=== PATIENT | male | born 1945 | race Caucasian/White ===

== ENCOUNTER 2017-01-12 11:49 | Observation (INO) ==
--- NOTE | 2017-01-12 12:05 | Emergency Department Note ---
Disposition Clinical Impression: Hypertension, Frail elderly, History of colon cancer, History of coronary artery disease, Abnormal liver function tests, Elevated lipase, Renal artery stenosis, Degenerative joint disease (DJD) of lumbar spine, DJD (degenerative joint disease) of thoracic spine, Diverticulosis, Cholelithiasis, Pulmonary nodule, Ventral hernia Disposition: Admitted As Inpatient Referrals: NO,PCP [Non-Partnered Physician] - Forms: ED Satisfaction Letter General Adult HPI - General Chief complaint: ED Back Pain/Injury Stated complaint: back pain Time Seen by Provider: 01/12/17 12:05 Source: patient, family Limitations: no limitations - History of Present Illness HPI Narrative: 71-year-old male reports to the emergency Department complaining of progressive right-sided back pain for the last 5 days. The patient has no history of back problems, he has never had back surgery. He has a history of coronary disease, he is not currently anticoagulated. The patient denies any chest pain or abdominal pain no bloody urine. No history of kidney stones. There has been no fall or injury. Patient is hypertensive but has not been taking his medications. There is no history of fever or rash. No bowel or bladder problems. No weakness or numbness in the legs. The pain does not necessarily radiate down the posterior thighs. There is no history of hip pain particularly. No coldness blueness numbness or weakness of the arms or legs. The patient states it hurts when he moves sometimes but not all the time. The patient has no personal history of aneurysm. There is no history of syncope or leg swelling. No confusion or fever. No cough or runny nose ear pain or sore throat. The patient has had no difficulty walking talking hearing seeing or speaking. No confusion or headache or neck stiffness. Patient has never had an MRI of his spine, he denies spinal problems in the past but he does have a history of colon cancer. Pain Scale: 0 - Related Data Allergies Allergy/AdvReac Type Severity Reaction Status Date / Time No Known Allergies Allergy Verified 01/12/17 13:21 All systems ED: reviewed and negative except as stated. Past Medical History - Past Medical History Medical history: Reports: hypertension - Social History Smoking Status: Never smoker Alcohol use: Reports: none Drug use: Reports: none Physical Exam - General Limitations: no limitations General appearance: alert, in no apparent distress - Head Head exam: atraumatic, normocephalic, normal inspection - Eye Eye exam: Present: normal appearance, PERRL, EOMI - ENT ENT exam: normal exam, normal oropharynx, mucous membranes moist, TM's normal bilaterally, normal external ear exam - Neck Neck exam: Present: normal inspection, full ROM, trachea midline. Absent: tenderness - Chest Chest inspection: Present: symmetric chest wall rise. Absent: tenderness - Respiratory Respiratory exam: Present: normal lung sounds bilaterally. Absent: respiratory distress - Cardiovascular Cardiovascular exam: Present: regular rate, normal rhythm, normal heart sounds - Abdominal Exam Abdominal exam: Present: soft, Non-Tender, normal bowel sounds. Absent: tenderness, distention, guarding, rebound, rigidity, Sims's sign, Rovsing's sign, tenderness at McBurney's Point, ascites, pulsatile mass - Rectal Exam Rectal exam: Present: deferred (Patient declines.) - Extremities Exam Extremities exam: Present: normal inspection, full ROM, normal capillary refill. Absent: tenderness, pedal edema, joint swelling, calf tenderness - Expanded Lower Extremity Exam Hip/Pelvis exam: Present: full ROM. Absent: tenderness Upper leg exam: Present: full ROM. Absent: tenderness Knee exam: Present: full ROM. Absent: tenderness Lower leg exam: Present: full ROM. Absent: tenderness, Homans' sign Ankle exam: Present: full ROM. Absent: tenderness Neurovascular/Tendon exam: Present: normal capillary refill. Absent: pulse deficit, motor deficit, sensory deficit, tendon deficit, extremity cold to touch , pallor - Back Exam Back exam: Present: normal inspection, full ROM. Absent: tenderness, CVA tenderness (R), CVA tenderness (L), muscle spasm, paraspinal tenderness, vertebral tenderness, straight leg raise (R), straight leg raise (L) - Neurological Exam Neurological exam: Present: alert, oriented X3, CN II-XII intact. Absent: motor sensory deficit - Psychiatric Psychiatric exam: Present: normal affect, normal mood - Skin Skin exam: Present: warm, dry, intact, normal color. Absent: rash, cyanosis, diaphoresis, erythema, pallor, mottled Course Vital Signs Temperature 97.4 F L 01/12/17 11:50 Pulse Rate 74 01/12/17 11:50 Respiratory Rate 16 01/12/17 11:50 Blood Pressure 217/125 01/12/17 11:50 O2 Sat by Pulse Oximetry 97 01/12/17 11:50 Temperature 97.4 F L 01/12/17 11:50 Pulse Rate 86 01/12/17 14:13 Respiratory Rate 18 01/12/17 14:13 Blood Pressure 177/79 01/12/17 14:13 O2 Sat by Pulse Oximetry 97 01/12/17 14:13 Oxygen Delivery Oxygen Delivery Room Air Medical Decision Making - MDM Narrative Medical decision making narrative: The patient's CTs do not reveal aortic dissection, thoracic or lumbar disease as noted and post of other findings including cholelithiasis. The patient does have a slightly elevated lipase and liver function test. He does not seem to have right upper abdominal pain and is not jaundiced. I am concerned because the CT does reveal renal artery stenosis, the patient's blood pressure is markedly elevated, he is elderly, we did give him hydralazine which did bring his blood pressure down. Based on the patient's age, uncontrolled blood pressure, apparent new diagnosis of renal artery stenosis, gallbladder radiographic disease and associated liver function abnormalities and elevation lipase, I thought it be appropriate to admit the patient the hospital for further evaluation with particular attention to the patient's blood pressure. Perhaps a nephrology consult and/or surgical consult would be helpful. I discussed the case with the hospitalist on-call who has accepted the patient to their care. - Lab Data Lab results reviewed: Yes I reviewed the patient's lab results. Result diagrams: 01/12/17 12:25 01/12/17 12:25 Lab Results 01/12/17 01/12/17 01/12/17 Range/Units 12:25 12:25 12:25 WBC 7.3 (4.3-11.1) K/mcL RBC 5.03 (4.19-5.50) M/mcL Hgb 16.0 (12.9-16.9) g/dL Hct 45.0 (37.5-50.1) % MCV 89.5 (83.0-100.0) fL MCH 31.8 (28.0-33.3) pg MCHC 35.6 H (31.6-35.5) g/dL RDW 13.3 (11.5-14.5) % Plt Count 273 (140-400) K/mcL MPV 10.2 (9.4-12.4) fL Immature Gran % 0.4 (0-4) % Seg Neutrophils % 56.2 % Lymphocytes % 29.1 % Monocytes % 9.3 % Eosinophils % 3.6 % Basophils % 1.4 % Neutrophils # 4.1 (1.6-8.9) K/mcL Lymphocytes # 2.1 (0.6-4.6) K/mcL Monocytes # 0.7 (0.0-1.3) K/mcL Eosinophils # 0.3 (0.0-0.6) K/mcL Basophils # 0.1 (0.0-0.2) K/mcL PT (9.4-12.1) Seconds INR APTT (26.0-36.0) Seconds Sodium 139 (136-145) mEq/L Potassium 4.0 (3.5-4.5) mEq/L Chloride 109 (98-109) mEq/L Carbon Dioxide 22 (19-29) mEq/L BUN 23 (8-26) mg/dL Creatinine 0.89 (0.72-1.25) mg/dL Est GFR ( Amer) > 60 (> 60) Est GFR (Non-Af Amer) > 60 (> 60) BUN/Creatinine Ratio 26 (6-26) Glucose 90 (70-99) mg/dL Calculated Osmolality 291 (280-300) Lactic Acid (0.5-2.2) mmol/L Calcium 9.7 (8.6-10.8) mg/dL Total Bilirubin 0.9 (0.2-1.2) mg/dL Direct Bilirubin 0.3 (0.0-0.5) mg/dL Indirect Bilirubin 0.6 (0.0-1.2) mg/dL AST 39 H (5-34) Units/L ALT 58 H (0-55) Units/L Alkaline Phosphatase 98 (38-126) Units/L Troponin I 0.01 (0-0.03) ng/mL C-Reactive Protein (Less than 5) mg/L Serum Total Protein 7.4 (6.0-8.3) g/dL Albumin 3.9 (3.5-5.0) g/dL Globulin 3.5 (2.4-3.5) g/dL Albumin/Globulin Ratio 1.1 (1.1-2.2) Lipase 113 H (8-78) Units/L 01/12/17 01/12/17 01/12/17 Range/Units 12:25 12:25 12:28 WBC (4.3-11.1) K/mcL RBC (4.19-5.50) M/mcL Hgb (12.9-16.9) g/dL Hct (37.5-50.1) % MCV (83.0-100.0) fL MCH (28.0-33.3) pg MCHC (31.6-35.5) g/dL RDW (11.5-14.5) % Plt Count (140-400) K/mcL MPV (9.4-12.4) fL Immature Gran % (0-4) % Seg Neutrophils % % Lymphocytes % % Monocytes % % Eosinophils % % Basophils % % Neutrophils # (1.6-8.9) K/mcL Lymphocytes # (0.6-4.6) K/mcL Monocytes # (0.0-1.3) K/mcL Eosinophils # (0.0-0.6) K/mcL Basophils # (0.0-0.2) K/mcL PT 10.5 (9.4-12.1) Seconds INR 1.0 APTT 39.4 H (26.0-36.0) Seconds Sodium (136-145) mEq/L Potassium (3.5-4.5) mEq/L Chloride (98-109) mEq/L Carbon Dioxide (19-29) mEq/L BUN (8-26) mg/dL Creatinine (0.72-1.25) mg/dL Est GFR ( Amer) (> 60) Est GFR (Non-Af Amer) (> 60) BUN/Creatinine Ratio (6-26) Glucose (70-99) mg/dL Calculated Osmolality (280-300) Lactic Acid 0.8 (0.5-2.2) mmol/L Calcium (8.6-10.8) mg/dL Total Bilirubin (0.2-1.2) mg/dL Direct Bilirubin (0.0-0.5) mg/dL Indirect Bilirubin (0.0-1.2) mg/dL AST (5-34) Units/L ALT (0-55) Units/L Alkaline Phosphatase (38-126) Units/L Troponin I (0-0.03) ng/mL C-Reactive Protein 6 H (Less than 5) mg/L Serum Total Protein (6.0-8.3) g/dL Albumin (3.5-5.0) g/dL Globulin (2.4-3.5) g/dL Albumin/Globulin Ratio (1.1-2.2) Lipase (8-78) Units/L - Radiology Data Radiology results reviewed: Yes I reviewed the patient's radiology results.
[2017-01-12] MEDS ORDERED: *HR* Labetalol 20 MG/4 ML SYRINGE IVP ONE (12:18)
[2017-01-12] MEDS ORDERED: *HR* Morphine 2 MG/ML SYRINGE IVP ONE ×2 (12:19→20:01)
[2017-01-12] MEDS ORDERED: Ondansetron 4 MG/2 ML VIAL IVP ONE (12:19)
[2017-01-12] MEDS ORDERED: 0.9 % Sodium Chloride 1,000 ML IVC SCH ×2 (12:30→21:30)
[2017-01-12 12:36] LABS: Basophils # 0.1 K/mcL (0.0-0.2); Basophils % 1.4 %; Eosinophils # 0.3 K/mcL (0.0-0.6); Eosinophils % 3.6 %; Immature Granulocytes % 0.4 % (0-4); Lymphocytes # 2.1 K/mcL (0.6-4.6); Lymphocytes % 29.1 %; Mean Corpuscular HGB Conc 35.6 g/dL (31.6-35.5); Mean Corpuscular Hemoglobin 31.8 pg (28.0-33.3); Mean Corpuscular Volume 89.5 fL (83.0-100.0); Mean Platelet Volume 10.2 fL (9.4-12.4); Monocytes # 0.7 K/mcL (0.0-1.3); Monocytes % 9.3 %; Neutrophils # 4.1 K/mcL (1.6-8.9); Platelet Count 273 K/mcL (140-400); Red Blood Count 5.03 M/mcL (4.19-5.50); Red Cell Distribution Width 13.3 % (11.5-14.5); Segmented Neutrophils % 56.2 %
[2017-01-12 12:46] LABS: Alanine Aminotransferase 58 Units/L (0-55); Albumin 3.9 g/dL (3.5-5.0); Albumin/Globulin Ratio 1.1 (1.1-2.2); Alkaline Phosphatase 98 Units/L (38-126); Aspartate Amino Transferase 39 Units/L (5-34); BUN/Creatinine Ratio 26 (6-26); Bilirubin,Direct 0.3 mg/dL (0.0-0.5); Bilirubin,Indirect 0.6 mg/dL (0.0-1.2); Bilirubin,Total 0.9 mg/dL (0.2-1.2); Blood Urea Nitrogen 23 mg/dL (8-26); Calcium 9.7 mg/dL (8.6-10.8); Carbon Dioxide 22 mEq/L (19-29); Chloride 109 mEq/L (98-109); Globulin 3.5 g/dL (2.4-3.5); Glucose 90 mg/dL (70-99); Lipase 113 Units/L (8-78); Osmolality,Calculated 291 (280-300); Sodium 139 mEq/L (136-145); Total Protein 7.4 g/dL (6.0-8.3); eGFR For African Americans > 60 (> 60); eGFR For Non-African Americans > 60 (> 60)
[2017-01-12 12:56] LABS: Prothrombin Time 10.5 Seconds (9.4-12.1)
[2017-01-12 12:59] LABS: Activated Partial Thrombo Time 39.4 Seconds (26.0-36.0)
[2017-01-12] MEDS ORDERED: *HR* OxyCODONE/APAP 5/325 TABLET PO ONE (17:31)
[2017-01-12] MEDS ORDERED: Ondansetron 4 MG/2 ML VIAL IVP PRN (21:21)
[2017-01-12] MEDS ORDERED: Naloxone 0.4 MG/ML INJ IVP PRN (21:21)
[2017-01-12] MEDS ORDERED: *HR* Morphine 2 MG/ML SYRINGE IVP PRN (21:21)
--- NOTE | 2017-01-12 22:13 | Internal Med History&Physical ---
Date of Encounter: 01/12/17 Time of Encounter: 20:15 Assessment and Plan (1) Hypertensive urgency Current visit: Yes Status: Acute 1. Will use Hydralazine PRN and monitor closely. 2. Patient will likely need chronic daily anti-hypertensives. 3. BP will likely improve as pain is treated. 4. I asked patient's to obtain his old medication list to review. 5. No BB as he is bradycardic. (2) Intractable low back pain Current visit: Yes Status: Acute 1. I suspect he has musculoskeletal etiology, likely disc disease. 2. Will treat with IV Morphine and muscle relaxers as needed. 3. MRI thoracolumbar spine. 4. May need spine surgery consult. (3) Pancreatitis Current visit: Yes Status: Acute 1. Patient asymptomatic. 2. Will keep on clear liquid diet and follow labs. 3. Check lipid profile. 4. Patient does not drink alcohol. 5. Follow LFTS. 6. May need further GB work-up once acute problems resolve. Qualifiers: Chronicity: acute Pancreatitis type: unspecified pancreatitis type Acute pancreatitis complication: no infection or necrosis Qualified Code(s): K85.90 - Acute pancreatitis without necrosis or infection, unspecified (4) Renal artery stenosis Current visit: Yes Status: Acute 1. Consult Dr. Funez for further work-up, intervention if advised, and for chronic BP control. (5) CAD (coronary artery disease) Current visit: Yes Status: Chronic 1. Will trend troponins, EKG's, and obtain ECHO. 2. Will check baseline labs and recommend appropriate medications upon discharge. 3. Patient advised on the importance of compliance with medical care. Qualifiers: Coronary Disease-Associated Artery/Lesion type: [place] artery [place] vs. transplanted heart: [place] heart Associated angina: without angina Qualified Code(s): I25.10 - Atherosclerotic heart disease of [place] coronary artery without angina pectoris (6) DVT prophylaxis Current visit: Yes Status: Acute 1. Heparin SQ. Internal Medicine - H&P: HPI Chief complaint: intractable low back pain; uncontrolled hypertension Admitted From: Emergency Dept Plans for Post Hospital Care: Home History of present illness: Mr. Leal is a 71 year old male who presents with several day history of severe , intractable right lower back pain. He has dealt with this for several years off and on and was able to treat himself with [id number] NSAIDs and heating pad. However, over the last few days, this flareup was severe and resulted in intractable back pain. As such, he came to the ER where he was noted to have hypertensive urgency. He therefore underwent scans looking for aortic dissection which were negative. He was found to have incidental finding of renal artery stenosis and gallstones. His blood pressure was treated, and he was admitted to the hospitalist service for further workup and care. He was also found to have some evidence of pancreatitis as well. Upon my assessment of the patient, he feels a little better but still complains of significant pain in his right lower back with some weakness and radiating pain to his right foot. He denies any trauma or injury. He does have evidence of severe disc disease in his thoracolumbar spine. He denies any chest pain, shortness of breath, nausea, vomiting, or diarrhea. He does have coronary artery disease and underwent bypass surgery several years ago. He also has a history of hypertension and hyperlipidemia. He has been noncompliant with his medications and has not taken any medication lately other than [id number] NSAIDs for his back pain. He denies any renal problems in the past. The renal artery stenosis finding today was incidental and a new finding for him. Past Med Surg Social Fam HX - Past Medical History Attestation: Yes The following information was validated with the patient. Source: patient, old records reviewed, obtained from family Medical history: cancer (colon -- partial resection), coronary artery disease, hypertension Psychiatric history: no psych history - Past Surgical History Surgical History: colectomy (partial), coronary bypass (CABG) - Social History Smoking Status: Never smoker Smokeless Tobacco Status: No Alcohol use: none Drug use: none Current living situation: Home, With Family Activity Level: Independent ambulation Recent Out of Country Travel Within the Last 8 Weeks: No - Family History Mother Age: 100 Living Status: Hx Family Neurologic Disorders: Yes Father Living Status: Cause of : gun shot wound Internal Medicine - H&P: Meds Naproxen Sodium [Aleve] 220 mg PO Q12H PRN 01/12/17 [History] Allergies No Known Allergies Allergy (Verified 01/12/17 13:21) - Constitutional Constitutional: no chills, no fever(s), no night sweats - EENT Eyes: no blurry vision, no change in vision Ears: no ear pain, no tinnitus Nose, mouth and throat: no nasal congestion, no sinus pressure, no sore throat - Cardiovascular Cardiovascular ROS IM: no chest pain, no diaphoresis, no dyspnea, no dyspnea on exertion, no irregular heart rhythm, no syncope - Respiratory Respiratory: no cough, no dyspnea, no hemoptysis, no wheezing, no chest congestion - Gastrointestinal Gastrointestinal: no abdominal pain, no diarrhea, no hematemesis, no hematochezia, no melena, no nausea, no vomiting - Genitourinary Genitourinary ROS male: no dysuria, no flank pain, no hematuria - Musculoskeletal Musculoskeletal ROS IM: arthralgias, back pain (severe and intractable right side lumbar area), tingling (right foot) - Integumentary Integumentary IM: no rash, no jaundice - Neurological Neurological ROS: no focal weakness, no frequent falls, no headache(s) - Psychiatric Psychiatric: no anxiety, no depression - Endocrine Endocrine IM: no polydipsia, no polyphagia, no polyuria - Hematologic/Lymphatic Hematologic/Lymphatic: no easy bruising, no lymphadenopathy - Allergic/Immunologic Allergic/Immunologic: no wheezing, no GI upset with certain foods - Constitutional Vitals: Temp Pulse Resp BP Pulse Ox 97.5 F L 57 18 153/64 96 01/12/17 18:40 01/12/17 18:40 01/12/17 18:40 01/12/17 18:40 01/12/17 18:40 General appearance: Present: cooperative, mild distress, A&O X 3, pleasant, answers questions appropriately - Head Head exam: Present: atraumatic, normal inspection - Expanded Head Exam Head exam expanded: Absent: abrasion, contusion, general tenderness - Eye Eye exam: Present: EOMI, normal appearance, PERRL. Absent: scleral icterus Pupils: Present: normal accommodation - ENT ENT exam: Present: mucous membranes moist, normal exam, normal oropharynx - Neck Neck exam general surgery: Present: full ROM, normal inspection, supple. Absent : lymphadenopathy, tenderness - Expanded Neck Exam Neck exam: Absent: carotid bruit - Respiratory Respiratory exam: Present: CTAB. Absent: chest wall tenderness, rales, rhonchi , wheezes - Cardiovascular Cardiovascular exam: Present: RRR, +S1, +S2. Absent: diastolic murmur, JVD, systolic murmur - GI/Abdominal GI/Abdominal exam: Present: normal bowel sounds, soft, no peritoneal signs. Absent: guarding, hepatomegaly, rebound, splenomegaly, tenderness - Extremities Exam Extremities exam: Present: full ROM, warm. Absent: calf tenderness, joint swelling, pedal edema, tenderness - Back Exam Back exam: Present: paraspinal tenderness (right lower lumbar area). Absent: CVA tenderness (L), CVA tenderness (R) - Neurological Exam Neurological exam: Present: alert, CN II-XII intact, oriented X3, no focal deficits. Absent: motor sensory deficit Additional comments: radiating pain but no weakness to RLE - Psychiatric Psychiatric exam: Present: normal affect, normal mood - Skin Skin exam: Present: dry, warm. Absent: rash Internal Med - H&P Results - Labs CBC & Chem 7: 01/12/17 12:25 01/12/17 12:25 - EKG Data EKG comments: 01/12/17 22:19 EKG unavailable for review; will order one to review - Diagnostic Studies CT scan - chest Status: image reviewed by me (negative for dissection/aneurysm/PE; gallstones noted)
[2017-01-12] MEDS: Pantoprazole 40 MG VIAL IVP SCH (22:15)
[2017-01-12] MEDS: *HR* Heparin 5,000 UNIT/ML VIAL SQ SCH (22:16)
[2017-01-13 04:08] LABS: Basophils # 0.1 K/mcL (0.0-0.2); Basophils % 0.9 %; Eosinophils # 0.2 K/mcL (0.0-0.6); Eosinophils % 3.4 %; Hematocrit 45.5 % (37.5-50.1); Hemoglobin 15.5 g/dL (12.9-16.9); Immature Granulocytes % 0.1 % (0-4); Lymphocytes # 1.7 K/mcL (0.6-4.6); Lymphocytes % 25.6 %; Mean Corpuscular HGB Conc 34.1 g/dL (31.6-35.5); Mean Corpuscular Hemoglobin 31.6 pg (28.0-33.3); Mean Corpuscular Volume 92.9 fL (83.0-100.0); Mean Platelet Volume 10.3 fL (9.4-12.4); Monocytes # 0.8 K/mcL (0.0-1.3); Monocytes % 12.3 %; Neutrophils # 3.9 K/mcL (1.6-8.9); Platelet Count 266 K/mcL (140-400); Red Cell Distribution Width 13.6 % (11.5-14.5); Segmented Neutrophils % 57.7 %
[2017-01-13 04:18] LABS: Alanine Aminotransferase 54 Units/L (0-55); Albumin 3.4 g/dL (3.5-5.0); Alkaline Phosphatase 92 Units/L (38-126); Amylase 49 Units/L (25-125); Aspartate Amino Transferase 36 Units/L (5-34); BUN/Creatinine Ratio 25 (6-26); Bilirubin,Total 0.7 mg/dL (0.2-1.2); Blood Urea Nitrogen 27 mg/dL (8-26); Calcium 9.8 mg/dL (8.6-10.8); Carbon Dioxide 24 mEq/L (19-29); Chloride 107 mEq/L (98-109); Chol/HDL Ratio 6.2 (0-4.9); Cholesterol 230 mg/dL (< 200); Globulin 3.4 g/dL (2.4-3.5); Glucose 111 mg/dL (70-99); HDL Cholesterol 37 mg/dL (40-59); LDL Cholesterol,Calculated 142 mg/dL (0-99); Lipase 35 Units/L (8-78); Magnesium 2.6 mg/dL (1.6-2.6); Osmolality,Calculated 296 (280-300); Sodium 140 mEq/L (136-145); Total Protein 6.8 g/dL (6.0-8.3); Triglycerides 254 mg/dL (< 150); eGFR For African Americans > 60 (> 60); eGFR For Non-African Americans > 60 (> 60)
[2017-01-13 05:35] LABS: Bilirubin,Urine Negative (Negative); Blood,Urine Negative (Negative); Clarity,Urine Clear (Clear); Color,Urine Yellow (Yellow); Glucose,Urine (UA) Normal (Normal); Ketones,Urine Negative (Negative); Leukocyte Esterase,Urine Negative (Negative); Nitrite,Urine Negative (Negative); PH,Urine 5.5 pH Units (5.0-8.0); Protein,Urine 30 mg/dL (Neg-Trace); Specific Gravity,Urine > 1.030 (1.010-1.025); Urobilinogen,Urine Normal (Normal)
[2017-01-13 05:38] LABS: Bacteria,Urine None Seen per hpf (None-Few); Hyaline Casts,Urine None Seen per lpf (None-Few); RBC,Urine 0-3 per hpf (0-3); Squamous Epithelial Cell,Urine Moderate per lpf (None-Few); WBC,Urine 0-3 per hpf (0-3)
[2017-01-13] MEDS: *HR* Heparin 5,000 UNIT/ML VIAL SQ SCH ×3 (05:39→21:33)
[2017-01-13] MEDS: Pantoprazole 40 MG VIAL IVP SCH (05:39)
[2017-01-13] MEDS ORDERED: Perflutren Lipid Microsphere 1.3 ML in 0.9 % Sodium Chloride 8.7 ML IVP ONE (08:02)
[2017-01-13] MEDS ORDERED: Perflutren Lipid Microsphere 2 ML VIAL ONE (08:18)
[2017-01-13] MEDS ORDERED: amLODIPine 5 MG TABLET PO SCH (09:30)
--- NOTE | 2017-01-13 09:43 | Internal Med Progress Note ---
Date of Encounter: 01/13/17 Time of Encounter: 09:41 - Assessment and plan (1) Elevated lipase Status: Resolved Assessment and plan: The patient was noted to have mildly elevated serum lipase at the time of admission, however had no clinical signs of pancreatitis. Serum lipase is now noted to be improving and patient is able to tolerate liquid diet. We will advance diet to solids. (2) Hypertensive urgency Status: Acute Assessment and plan: Patient is noted to have a history of medical noncompliance and has not followed up with his primary care provider or taken any of his medications for the last 6-7 months. Blood pressure is currently well controlled. Will start patient on oral hydralazine and Norvasc along with when necessary IV medications for appropriate blood pressure control. We will follow nephrology recommendations. (3) Intractable low back pain Status: Acute Assessment and plan: Likely related to spinal stenosis/radiculopathy. CT lumbar and thoracic spine showed no acute abnormality. Will follow up MRI lumbar and thoracic spine. Pain control with when necessary oral oxycodone. Supportive care. (4) Renal artery stenosis Status: Chronic Assessment and plan: Patient has an incidental finding of renal artery stenosis and nephrology has been consulted, will follow-up recommendations. (5) CAD (coronary artery disease) Status: Chronic Assessment and plan: The patient has been lost to follow-up for the last few months. We will restart on Lipitor given his history of coronary artery disease. Qualifiers: Coronary Disease-Associated Artery/Lesion type: bypass graft [place] vs. transplanted heart: [place] heart Associated angina: without angina Qualified Code(s): I25.810 - Atherosclerosis of coronary artery bypass graft(s) without angina pectoris - Subjective Interval history: Continues to have significant mid low back pain, aggravated on certain types of movement, relieved on sitting still. No nausea, vomiting, urinary or stool incontinence. No tingling or numbness or weakness in legs. - Constitutional Vitals: Temp Pulse Resp BP Pulse Ox 97.5 F L 59 14 189/64 93 01/13/17 05:04 01/13/17 05:04 01/13/17 05:04 01/13/17 05:04 01/13/17 05:04 General appearance: Present: A&O X 3, answers questions appropriately - Respiratory Respiratory exam: Present: CTAB. Absent: accessory muscle use, rales, rhonchi, wheezes - Cardiovascular Cardiovascular exam: Present: RRR, +S1, +S2. Absent: diastolic murmur, gallop, rubs, systolic murmur - GI/Abdominal GI/Abdominal exam: Present: normal bowel sounds, soft (obese), no peritoneal signs. Absent: distended, tenderness - Extremities Exam Extremities exam: Present: full ROM, warm, radial pulses palpable and symetrical. Absent: calf tenderness, cyanotic, pedal edema - Back Exam Additional comments: no midline spinal tenderness/swelling restricted ROM in lumbar spine Internal Medicine: Result - Labs CBC & Chem 7: 01/13/17 03:46 01/14/17 08:56 Labs: Short CBC 01/13/17 Range/Units 03:46 WBC 6.8 (4.3-11.1) K/mcL Hgb 15.5 (12.9-16.9) g/dL Hct 45.5 (37.5-50.1) % Plt Count 266 (140-400) K/mcL Neutrophils # 3.9 (1.6-8.9) K/mcL BMP 01/13/17 03:46 Sodium 140 Potassium 4.0 Chloride 107 Carbon Dioxide 24 BUN 27 H Creatinine 1.10 Glucose 111 H Calcium 9.8 Cardiac Enzymes 01/13/17 Range/Units 03:46 Troponin I 0.01 (0-0.03) ng/mL Liver Function 01/13/17 Range/Units 03:46 Total Bilirubin 0.7 (0.2-1.2) mg/dL AST 36 H (5-34) Units/L ALT 54 (0-55) Units/L Alkaline Phosphatase 92 (38-126) Units/L Albumin 3.4 L (3.5-5.0) g/dL Urine 01/13/17 Range/Units 05:20 Urine Color Yellow (Yellow) Urine Clarity Clear (Clear) Urine pH 5.5 (5.0-8.0) pH Units Ur Specific [place] > 1.030 H (1.010-1.025) Urine Protein 30 H (Neg-Trace) mg/dL Urine Glucose (UA) Normal (Normal) mg/dL - ABG Interpretation ABG results: PT/INR, D-dimer PT 10.5 Seconds (9.4-12.1) 01/12/17 12:28 Consult Discharge Plan - Plan Additional Instructions: F/up with at [facility] on 01/17/17 at 0900 Referrals: Yaw Kapoor, DO [Primary Care Provider] - (patient to call office once they are home to make a follow up appointment) Prescriptions: OxyCODONE Immed Rel [Roxicodone 5 MG] 5 mg PO Q4HR PRN #20 tablet PRN Reason: Severe Pain HydrALAZINE 25 mg PO Q8HR #90 tablet Amlodipine [Norvasc] 5 mg PO BID #60 tablet Atorvastatin [Lipitor] 40 mg PO HS #30 tablet Cyclobenzaprine [Flexeril] 10 mg PO TID PRN #30 tablet PRN Reason: Spasms Lidocaine Patch [Lidoderm 5% patch] 1 each TP DAILY PRN #10 adh..patch PRN Reason: Pain Lisinopril [Zestril] 10 mg PO BID #60 tablet Triamterene/HCTZ 75/50mg [Maxzide] 1 each PO DAILY #30 tablet
--- NOTE | 2017-01-13 10:32 | Nephrology Consult Note ---
Date of Encounter: 01/13/17 Time of Encounter: 09:55 Assessment and Plan (1) Hypertension Current Visit: Yes Status: Acute Hypertension urgency related to non compliance of not taking antihypertensive medication, uncontrolled pain issues, NSAID use, incidental finding of ISIAH contributing. Spoke with Dr. Funez. He does not feel ISIAH is a significant issue and will start on ACEI. BID dosing of Amlodipine. Will get TSH. Further ISIAH workup and JENNIFER can be done outpatient. Qualifiers: Hypertension type: renovascular hypertension Qualified Code(s): I15.0 - Renovascular hypertension History of Present Illness - Reason for Consult accelerated hypertension - History of Present Illness Mr. Leal is a 71 year old male who presented to ER with progressive right sided back pain for 5 days and incidental hypertensive urgency, BP 217/125. . Other PMH-CAD, CABG, HTN, HLD, colon cancer. Mr. Leal denies prior history of back pain. He was taking NSAID for back pain. He did receive Hydralazine in ER that did bring his BP down. CT did not reveal aortic dissection. Positive for thoracic and lumbar disease and cholelithiasis and incidental finding of moderate renal artery stenosis on right. Labs showed slightly elevated lipase and liver function test. His renal fct is normal. At todays consult, Mr. Leal is sitting on edge of bed, having just eaten breakfast. He states his back pain is somewhat lessened. He states hypertension for 5-6 years, under good control up until about 6 months ago when he did not go to F/U visit with PCP and never got his BP medication refilled. He does not know what BP medication he was taking. He admits past remote NSAID use with recent daily usage related to his current back pain over last 5 days. He denies headache or any unusual sweating. He denies history of sleep apnea or snoring. He denies proteinuria, hematuria, renal stones or UTI's. He denies LE swelling, shortness of breath or chest pain. He admits enlarged prostate with difficulty emptying bladder. He states he has followed with urology in past, was unable to afford prescribed medication and resorts to sitting when voiding that helps him in emptying bladder. Past Med Surg Social Fam HX - Past Medical History Medical history: cancer (colon -- partial resection), coronary artery disease, hypertension Psychiatric history: no psych history - Past Surgical History Surgical History: colectomy (partial), coronary bypass (CABG) - Social History Smoking Status: Never smoker Smokeless Tobacco Status: No Alcohol use: none Drug use: none - Family History Mother Age: 100 Living Status: Hx Family Neurologic Disorders: Yes Father Living Status: Cause of : gun shot wound Medications and Allergies Naproxen Sodium [Aleve] 220 mg PO Q12H PRN 01/12/17 [History] Allergies No Known Allergies Allergy (Verified 01/12/17 13:21) Review of Systems All Systems: reviewed and no additional remarkable complaints except as stated Exam - Vital Signs Vital signs: Initial Vital Signs Temp Pulse Resp BP Pulse Ox 97.4 F L 74 16 217/125 97 01/12/17 11:50 01/12/17 11:50 01/12/17 11:50 01/12/17 11:50 01/12/17 11:50 Vital Signs - Last 8 Hours Temp Pulse Resp BP Pulse Ox 01/13/17 05:04 97.5 F L 59 14 189/64 93 Intake and Output 01/12/17 01/13/17 01/13/17 23:59 07:59 15:59 Intake Total 0 / 0 Output Total 300 / 300 Balance -300 / -300 Intake: Oral 0 / 0 Output: Urine 300 / 300 - General Appearance General appearance: well-developed, well-nourished, appears started age, obese EENT: mucous membranes moist Neck: no JVD, no carotid bruit Respiratory: clear Cardiology: no edema, regular rate, regular rhythm Additional Comments: 2/6 systolic murmur Gastrointestinal: normoactive bowel sounds, no tenderness, no guarding, obese Integumentary: warm and dry Neurologic: alert and oriented x3 Psychiatric: mood/affect appropriate, cooperative Results - Lab Results 01/13/17 03:46 01/13/17 03:46 Most recent lab results Calcium 9.8 mg/dL (8.6-10.8) 01/13/17 03:46 Magnesium 2.6 mg/dL (1.6-2.6) 01/13/17 03:46 Consult Discharge Plan - Plan Referrals: Yaw Kapoor DO [Primary Care Provider] -
[2017-01-13 11:08] LABS: Creatinine,Urine 187 mg/dL; Microalbum/Creatinine Ratio,Ur 105 (0-30); Microalbumin,Urine 197 mg/L
[2017-01-13 11:21] LABS: Thyroid Stimulating Hormone 6.245 mcIU/mL (0.350-4.840)
[2017-01-13] MEDS: *HR* OxyCODONE Immed Rel 5 MG TABLET PO PRN ×2 (12:31→18:52)
--- NOTE | 2017-01-13 12:44 | ECHO - Doppler Report ---
Echo with Imaging Enhancement Agent Name: Andre Leal Date of Study: 01/13/2017 Date: 1945 Ht: 76.0 in Medical Record#: [id number] Age: 71 Wt: 300.0 lb Gender: Male BSA: 2.63 Order #: [id number] Location: [facility] Room #: 2A36 Reading Physician: Yajaira Rodriguez DO [facility]: Chloe Briseno RVT Ordering Physician: Narendra Johnson MD Primary Physician: Yaw Kapoor DO Indications: Coronary artery disease, Hypertension Impressions: LVEF 70%. Normal left ventricular size and systolic function. RV is not well evaluated on this study. Not all valves were well visualized. No Doppler evidence for dysfunction. Lack of TR gradient to estimate RVSP. Left Ventricular Wall Motion: Rest Echo Findings All wall segments showed normal motion. Findings: Study Quality * Technically sub-optimal with poor images. Definity was used. ECG Findings * Normal sinus rhythm. Left Atrium * Normal left atrial size. Mitral Valve * Normal mitral valve structure. * No mitral stenosis. * No mitral regurgitation. Aortic Valve * No aortic regurgitation. * Aortic valve not well visualized. * No aortic stenosis. Tricuspid Valve * Tricuspid valve not well visualized. * No tricuspid regurgitation. Pulmonic Valve * Pulmonic valve is not well visualized. * No pulmonic stenosis. * No pulmonic regurgitation. Pulmonary Artery * Pulmonary artery not well visualized. Left Ventricle * LVEF 70%. * Definity echo contrast was used. * Normal LV size and wall thickness. Right Ventricle * RV is not well visualized or evaluated. Right Atrium * Right atrium is not well visualized. Pericardium * There is no pericardial effusion present. IVC * The IVC is not well evaluated. Interatrial Septum * Interatrial septum not well evaluated. Aorta * Normally sized aortic root. History Hypertension History of CAD/PTCA Myocardial Infarction Coronary Artery Bypass Graft Contrast: Definity 1.3 ml in 8.7 ml of saline 3 ml. Measurements: BP: 189/ 64 2D Normal Values RVIDd: 3.00 cm <2.7 cm IVSd: 1.20 cm 0.6 - 1.0 cm LVIDd: 5.00 cm 3.7 - 5.6 cm LVPWd: 1.20 cm 0.6 - 1.1 cm LVIDs: 3.60 cm 1.5 - 3.6 cm AO: 2.80 cm < 4.0 cm LA: 3.70 cm 2.0 - 4.0cm %FS: 28.00 cm >25 % LA volume: Mitral Valve Peak E:.83 m/sec Peak A:.65 m/sec E/A Ratio:1.3 Updated by Yajaira Rodriguez on 01/13/2017 12:36:22 PM electronically signed on 01/13/2017 12:37:31 PM with status of Final Wall Motion Leary: 1=Normal, 2=Hypokinesis, 3=Akinesis, 4=Dyskinesis, 5=Aneurysmal, 6=Hyperkinetic, X=Not Visualized (Blank)=Missing
--- NOTE | 2017-01-13 13:24 | Electrocardiograph Report ---
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
[2017-01-13] MEDS: hydrALAZINE 25 MG TABLET PO SCH ×2 (14:31→23:55)
[2017-01-13] MEDS ORDERED: Naloxone 0.4 MG/ML INJ IVP PRN (18:04)
[2017-01-13] MEDS: *HR* OxyCODONE/APAP 10/325 TABLET PO PRN (20:56)
[2017-01-13] MEDS: amLODIPine 5 MG TABLET PO SCH (21:33)
[2017-01-14] MEDS: *HR* OxyCODONE/APAP 10/325 TABLET PO PRN ×2 (04:54→12:41)
[2017-01-14] MEDS: *HR* Heparin 5,000 UNIT/ML VIAL SQ SCH ×2 (05:42→14:14)
[2017-01-14] MEDS: amLODIPine 5 MG TABLET PO SCH (09:06)
[2017-01-14] MEDS: hydrALAZINE 25 MG TABLET PO SCH (09:06)
[2017-01-14 09:19] LABS: Alanine Aminotransferase 45 Units/L (0-55); Albumin 3.2 g/dL (3.5-5.0); Alkaline Phosphatase 90 Units/L (38-126); Aspartate Amino Transferase 26 Units/L (5-34); BUN/Creatinine Ratio 21 (6-26); Blood Urea Nitrogen 21 mg/dL (8-26); Calcium 9.3 mg/dL (8.6-10.8); Carbon Dioxide 22 mEq/L (19-29); Chloride 107 mEq/L (98-109); Globulin 3.3 g/dL (2.4-3.5); Glucose 195 mg/dL (70-99); Osmolality,Calculated 298 (280-300); Sodium 140 mEq/L (136-145); Total Protein 6.5 g/dL (6.0-8.3); eGFR For African Americans > 60 (> 60); eGFR For Non-African Americans > 60 (> 60)
--- NOTE | 2017-01-14 09:19 | Nephrology Progress Note ---
Date of Encounter: 01/14/17 Time of Encounter: 09:05 - Assessment and Plan (1) Hypertension Current Visit: Yes Status: Acute Hypertensive urgency n setting of non compliance of BP medication-non use, and back pain. Spoke with Dr. Funez. He does not feel ISIAH is a significant issue and did start on ACEI. BP improved since admission, though remains elevated. Will add Maxzide. TSH 6.24. Todays labs pending. If discharged, further ISIAH workup and JENNIFER can be done outpatient. Will follow in office in 3-4 weeks. Qualifiers: Hypertension type: essential hypertension Qualified Code(s): I10 - Essential (primary) hypertension Subjective Interval history: Sitting on edge of bed. States still has right posterior thoracic pain, though has increased mobility and ROM today. Objective - Vital Signs Vital signs: Vital Signs Temp Pulse Resp BP Pulse Ox 01/14/17 06:28 97.8 F 60 18 176/73 97 01/14/17 04:18 97.6 F 59 16 154/77 94 01/13/17 23:48 98.1 F 64 17 166/70 95 01/13/17 20:37 98.0 F 66 17 171/85 95 01/13/17 16:49 97.8 F 67 17 165/67 94 01/13/17 14:30 67 16 169/73 01/13/17 11:57 97.3 F L 59 17 172/69 93 01/13/17 10:15 97.7 F 70 16 162/73 97 Intake and Output 01/13/17 01/14/17 01/14/17 23:59 07:59 15:59 Output Total 250 / 250 Balance -250 / -250 Output: Urine 250 / 250 Other: Weight 136.2 kg Patient Weight 01/14/17 23:59 Weight 136.2 kg - General Appearance General appearance: Present: well-developed, well-nourished, appears started age , obese EENT: Present: mucous membranes moist Neck: Present: no JVD Respiratory: Present: clear Cardiology: Present: no edema, regular rate, regular rhythm Gastrointestinal: Present: normoactive bowel sounds, no tenderness Integumentary: Present: warm and dry Psychiatric: Present: mood/affect appropriate, cooperative - Lab 01/13/17 03:46 01/13/17 03:46 Most recent lab results Calcium 9.8 mg/dL (8.6-10.8) 01/13/17 03:46 Magnesium 2.6 mg/dL (1.6-2.6) 01/13/17 03:46 Urine Creatinine 187 mg/dL 01/13/17 05:20 Consult Discharge Plan - Plan Referrals: ColYaw moya DO [Primary Care Provider] -
[2017-01-14] MEDS: *HR* OxyCODONE Immed Rel 5 MG TABLET PO PRN (09:29)
[2017-01-14] MEDS ORDERED: *HR* OxyCODONE Immed Rel 5 MG TABLET PO PRN (13:25)
[2017-01-14 15:41] VITALS: BP 152/71
--- NOTE | 2017-01-14 15:56 | Discharge Summary ---
Date of Encounter: 01/14/17 Time of Encounter: 15:50 - Discharge Diagnosis (1) Elevated lipase Priority: Primary Status: Resolved (2) Hypertensive urgency Priority: Primary Status: Acute (3) Intractable low back pain Priority: Primary Status: Acute (4) Renal artery stenosis Priority: Primary Status: Chronic (5) CAD (coronary artery disease) Priority: Secondary Status: Chronic Qualifiers: Coronary Disease-Associated Artery/Lesion type: bypass graft [place] vs. transplanted heart: ute heart Associated angina: without angina Qualified Code(s): I25.810 - Atherosclerosis of coronary artery bypass graft(s) without angina pectoris - Discharge Medications Prescriptions: OxyCODONE Immed Rel [Roxicodone 5 MG] 5 mg PO Q4HR PRN #20 tablet PRN Reason: Severe Pain HydrALAZINE 25 mg PO Q8HR #90 tablet Amlodipine [Norvasc] 5 mg PO BID #60 tablet Atorvastatin [Lipitor] 40 mg PO HS #30 tablet Cyclobenzaprine [Flexeril] 10 mg PO TID PRN #30 tablet PRN Reason: Spasms Lidocaine Patch [Lidoderm 5% patch] 1 each TP DAILY PRN #10 adh..patch PRN Reason: Pain Lisinopril [Zestril] 10 mg PO BID #60 tablet Triamterene/HCTZ 75/50mg [Maxzide] 1 each PO DAILY #30 tablet Home Medications: Naproxen Sodium [Aleve] 220 mg PO Q12H PRN 01/12/17 [History] Amlodipine [Norvasc] 5 mg PO BID #60 tablet 01/14/17 [Rx] Atorvastatin [Lipitor] 40 mg PO HS #30 tablet 01/14/17 [Rx] Cyclobenzaprine [Flexeril] 10 mg PO TID PRN #30 tablet 01/14/17 [Rx] HydrALAZINE 25 mg PO Q8HR #90 tablet 01/14/17 [Rx] Lidocaine Patch [Lidoderm 5% patch] 1 each TP DAILY PRN #10 adh..patch 01/14/17 [Rx] Lisinopril [Zestril] 10 mg PO BID #60 tablet 01/14/17 [Rx] OxyCODONE Immed Rel [Roxicodone 5 MG] 5 mg PO Q4HR PRN #20 tablet 01/14/17 [Rx] Triamterene/HCTZ 75/50mg [Maxzide] 1 each PO DAILY #30 tablet 01/14/17 [Rx] Allergies/Adverse Reactions: Allergies No Known Allergies Allergy (Verified 01/12/17 13:21) Procedures/tests Complete & Pending: Procedures Performed prior 72 hours Category Date Time Status MR lumbar spine wo con [MR] Routine MRI 01/13/17 12:46 Completed MR thoracic spine wo con [MR] Routine MRI 01/13/17 12:46 Completed ECG 12 lead ECG [ECG] AM 0600 Y 01/13/17 06:00 Ordered ECG 12 lead ECG [ECG] Routine Y 01/12/17 13:20 Completed ECG 12 lead ECG [ECG] Routine Y 01/12/17 21:08 Completed EV echocardiogram w enhance Routine Y 01/13/17 21:21 Completed Date of admission: 01/12/17 17:51 Primary care physician: Yaw Kapoor Consults: 01/12/17 21:26 Consult to Physician [CONS] Routine Consulting Provider: Warren Funez Reason for Consult: hypertensive urgency; renal artery stenosis Time Notified: 21:27 Call Completed: Yes Discharging clinician: Krista Smith Anticipated date of discharge: 01/14/17 - Patient Status Disposition: Home, Self-Care Condition: Fair Functional capacity at discharge: independent ambulation Overall status at discharge: patient is progressing back to baseline - Discharge Instructions Follow Up With: Yaw Kapoor, [Primary Care Provider] - (patient to call office once they are home to make a follow up appointment) Additional Instructions: F/up with at [facility] on 01/17/17 at 0900 - Diet and Activity Activity: increase activity as tolerated Diet: low fat, low cholesterol, low salt diet Hospital course: Mr. Leal is a 71 year old male admitted with intractable low back pain, worse with movements. Patient also was lost to medical f/up for the last 6-7 months and had hypertensive urgency at admission, which was gradually better controlled with initiation of oral antihypertensives. CT thoracic and lumbar spine showed no acute abnormality bit showed incidental right ISIAH. Nephrology was consulted and recommend outpatient f/up for this and managed HTN meds. MRI thoracic and lumbar spine showed disc bulge at L5-S1 contacting right S1 nerve root without impingement, minimal spinal stenosis at L4-5. His pain has been controlled with oral analgesics and patient remained otherwise stable. Case was d/w Spine surgeon , who recommended outpatient f/up in 2 days and f/up appointment has been provided. He also had elevated serum lipase but was clinically well and able to tolerate oral diet; lipase improved by next day after admission. Medication compliance has been reinforced and patient was explained about the importance of BP and cholesterol control due to h/o- CABG and he verbalized understanding. He is stable for discharge. - Time Spent with Patient Total time spent providing and/or coordinating discharge services: Greater than 30 minutes (50 min) - Constitutional Vitals: Temp Pulse Resp BP Pulse Ox 97.7 F 50 18 152/71 96 01/14/17 15:39 01/14/17 15:39 01/14/17 15:39 01/14/17 15:39 01/14/17 15:39 General appearance: Present: A&O X 3, answers questions appropriately - Cardiovascular Cardiovascular exam: Present: RRR, +S1, +S2. Absent: diastolic murmur, gallop, rubs, systolic murmur
== END 2017-01-14 16:56 | disposition home or self-care (01) ==
LOC: EMEROO 11:49 → 2ANU 11:49 → SUATTDRO 22:51
PROVIDERS: ADMIT Internal Medicine; ATTEND Internal Medicine